=== PATIENT | female | born 1955 | race African-American/Black ===

== ENCOUNTER 2019-02-12 13:19 | Emergency (ER) | payer OTHER ==
[~2019-02-12] VITALS: Ht 162.6 cm; Wt 69.9 kg
[~2019-02-12 13:19] MED LIST: ASPIR 8181 MG ORAL; COZAAR25 MG ORAL; FLEXERIL5 MG ORAL; GABAPENTIN300 MG ORAL; GLIPIZIDE5 MG ORAL; METFORMIN HCL1000 M1 ORAL; NAPROXEN250 MG ORAL; NAPROXEN500 M1 ORAL; NORCO1 EA ORAL; NOVOLIN; NOVOLIN N100 UNIT/1 SUBQ; PRAVASTATIN SOD10 M1 PO
--- NOTE | 2019-02-12 13:23 | NUR ---
ED Nurse Note: Patient not found in waiting room.
[2019-02-12] MEDS ORDERED: MULTIVITAMINS1 EAC2 ORAL (13:31)
[2019-02-12] MEDS ORDERED: SERTRALINE HCL25 MG ORAL (13:31)
[2019-02-12] MEDS ORDERED: Jardiance ORAL (13:31)
[2019-02-12] MEDS ORDERED: METFORMIN HCL1000 M1 ORAL (13:31)
[2019-02-12] MEDS ORDERED: AMLODIPINE BESYL5 MG ORAL (13:31)
[2019-02-12] MEDS ORDERED: CLOPIDOGREL75 MG ORAL (13:32)
--- NOTE | 2019-02-12 13:36 | NUR ---
ED Nurse Note: PT WALKED IN TO ER TODAY FROM HOME. AOX4. PT C/O LEFT SHOULDER PAIN RADIATING TO LEFT NECK AND HEAD WITH ACTIVITY, PAIN 9/10 AFTER FALLING X 1 MONTH AGO. PT DENIES PAIN AT REST. PT DOES C/O SOME NUMBNESS AND TINGLING. FULL ROM OF EXTREMITY AND DIGITS, CIRCULATION AND SENSATION INTACT, CAP REFILL <3 SECONDS AND 5/5 MUSCLE STRENGTH. PT STATES SHE HAS BEEN TAKING TYLENOL 650MG DAILY.
[2019-02-12 13:37] VITALS: BP 136/74
--- NOTE | 2019-02-12 14:05 | NUR ---
ED Nurse Note: PT TO XRAY VIA WHEELCHAIR.
--- NOTE | 2019-02-12 14:36 | NUR ---
ED Nurse Note: PT BACK FROM XRAY VIA WHEELCHAIR.
--- NOTE | 2019-02-12 14:55 | Emergency Room Report ---
History of Present Illness General Chief Complaint: Upper Extremity Injury Source: Medical Record Present Illness HPI 63-year-old female with history of chronic left shoulder pain and rotator cuff tear as well as insulin-dependent diabetes currently under the care of neurologist for neuropathy and disc disease here complaining of worsening left shoulder pain left-sided neck pain after a fall that occurred a month ago. Patient denies loss of consciousness, head injury, dizziness, blurry vision. Has been taking gabapentin as well as ibuprofen for pain. Rating her pain 5 out of 10 upon abduction of the left shoulder. Pain in the pain starts in the left neck and radiates to the left shoulder. Denies any new onset of worsening of her current tingling. Denies numbness. Denies chest pain, shortness of breath, palpitation, abdominal pain, nausea vomiting and all other associated symptoms. Patient had MRI of left shoulder done about 2 months ago which showed a tear of rotator cuff and has been sent to physical therapy however has not been compliant due to long distance to drive. 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 Allergies: Coded Allergies: No Known Allergies (Unverified , 03/10/13) Patient History Past Medical History: see triage record Past Surgical History: unable to obtain Pertinent Family History: none Last Menstrual Period: menopause Now: No Immunizations: UTD Reviewed Nursing Documentation: PMH: Agreed; PSxH: Agreed Nursing Documentation-PMH Past Medical History: No History, Except For Hx Hypertension: Yes Hx Diabetes: Yes Review of Systems All Other Systems: negative except mentioned in HPI Physical Exam Vital Signs Date Time Temp Pulse Resp B/P (MAP) Pulse Ox O2 Delivery O2 Flow Rate FiO2 02/12/19 13:24 98.1 83 15 143/75 (97) 95 Room Air Sp02 EP Interpretation: reviewed, normal General Appearance: normal inspection, well appearing, no apparent distress Head: normocephalic, atraumatic Eyes: bilateral eye normal inspection, bilateral eye PERRL ENT: normal ENT inspection, hearing grossly normal, normal pharynx Neck: supple, no meningismus, no bony tend, no carotid bruits Respiratory: normal inspection, chest non-tender, lungs clear, normal breath sounds, no rhonchi, no retraction, no wheezing Cardiovascular #1: normal inspection, regular rate, rhythm, no edema, no murmur , normal capillary refill Cardiovascular #2: 2+ carotid (R), 2+ carotid (L) Gastrointestinal: normal inspection, soft Rectal: deferred Musculoskeletal: back normal, digits/nails normal, gait/station normal, other - reduced abduction with left shoulder Neurologic: normal inspection, alert, oriented x3, responsive Psychiatric: normal inspection, judgement/insight normal, memory normal Skin: normal inspection, normal color, no rash, warm/dry Lymphatic: normal inspection, no adenopathy Medical Decision Making PA Attestation All diagnoses and treatment plans were reviewed and discussed with my supervising physician Dr. Ruiz Diagnostic Impression: Primary Impression: Chronic shoulder pain Additional Impressions: Neck arthralgia Degenerative arthritis ER Course 63-year-old female with history of chronic left shoulder pain and rotator cuff tear as well as insulin-dependent diabetes currently under the care of neurologist for neuropathy and disc disease here complaining of worsening left shoulder pain left-sided neck pain after a fall that occurred a month ago. Patient denies loss of consciousness, head injury, dizziness, blurry vision. Has been taking gabapentin as well as ibuprofen for pain. Rating her pain 5 out of 10 upon abduction of the left shoulder. Pain in the pain starts in the left neck and radiates to the left shoulder. Denies any new onset of worsening of her current tingling. Denies numbness. Denies chest pain, shortness of breath, palpitation, abdominal pain, nausea vomiting and all other associated symptoms. Patient had MRI of left shoulder done about 2 months ago which showed a tear of rotator cuff and has been sent to physical therapy however has not been compliant due to long distance to drive. 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 Ddx considered but are not limited to : Cervical arthralgia, cervical sprain, strain, fracture, degenerative changes, radiculopathy, shoulder rotator cuff tear, sprain, strain, Vital signs: are WNL, pt. is afebrile H&PE are most consistent with: Cervical arthralgia, degenerative arthritis, chronic shoulder pain ORDERS: Cervical spine x-ray, left shoulder x-ray, naproxen, Voltaren gel ED intervention: arm sling DISCHARGE: At this time pt. is stable for d/c to home. Will provide printed patient care instructions, and any necessary prescriptions. Care plan and follow up instructions have been discussed with the patient prior to discharge. I advised the patient to follow-up with a primary care provider for referral to physical therapy as well as another MRI avoid lifting any objects arm sling was applied Other X-Ray Diagnostic Results Other X-Ray Diagnostic Results #1: X-Ray ordered: Cervical spine # of Views/Limited Vs Complete: 2 View Indication: Pain EP Interpretation: Yes PA Xray: Interpretation reviewed, by supervising MD, and agrees with findings. Interpretation: no dislocation, no soft tissue swelling, no fractures, other - Degenerative changes Impression: No acute disease Electronically Signed by: dallas hedrick PA-C Other X-Ray Diagnostic Results #2: X-Ray ordered: Left shoulder # of Views/Limited Vs Complete: 2 View Indication: Pain EP Interpretation: Yes PA Xray: Interpretation reviewed, by supervising MD, and agrees with findings. Interpretation: no dislocation, no soft tissue swelling, no fractures, other - Degenerative changes Impression: No acute disease Electronically Signed by: dallas hedrick PA-C Last Vital Signs Date Time Temp Pulse Resp B/P (MAP) Pulse Ox O2 Delivery O2 Flow Rate FiO2 02/12/19 13:37 98.2 78 16 136/74 98 Room Air Disposition: HOME, SELF-CARE Condition: Stable Scripts Diclofenac Sodium (VOLTAREN) 100 Gm Gel..gram. 2 GM TP TID, #100 GM Prov: Dallas Connor 02/12/19 Naproxen* (NAPROXEN*) 500 Mg Tablet 500 MG ORAL TWICE A DAY, #20 TAB Prov: Dallas Connor 02/12/19 Referrals: [facility],REFERR[facility] (PCP) Patient Instructions: Cervical Sprain, [id number], Shoulder Pain, Easy-to- Read Additional Instructions: Follow-up with your specialist for another MRI of the left shoulder as your chronic condition may have worsen there is a lot of degenerative changes in your bones which is secondary to osteoarthritis follow-up with the primary care physician for physical therapy referral and further evaluation Dallas Connor Feb 12, 2019 14:55
[2019-02-12] MEDS ORDERED: VOLTAREN100 G1 TP (15:00)
[2019-02-12] MEDS ORDERED: NAPROXEN500 M2 ORAL (15:00)
--- NOTE | 2019-02-12 15:02 | NUR ---
ED Nurse Note: PT SITTING PEACEFULLY IN BED IN NAD. AOX4. PRESCRIPTIONS AND DISCHARGE PAPERWORK EXPLAINED TO PT. PT VERBALIZES UNDERSTANDING AND ALL QUESTIONS ANSWERED. PRESCRIPTIONS AND DISCHARGE PAPERWORK GIVEN TO PT AND ID WRISTBAND REMOVED. PT WALKED OUT OF ER WITH STEADY GAIT AND ALL BELONGINGS.
[2019-02-12 15:03] VITALS: BP 132/76
--- NOTE | 2019-02-12 15:07 | Diagnostic Imaging Report ---
Indication: Neck Pain Findings: 3 views of the cervical spine were obtained. Moderate degenerative changes of the cervical spine are demonstrated. This is characterized by vertebral endplate osteophyte formation and narrowing of intervertebral discs. The bones are osteopenic. Carotid calcifications within the neck are present. There is no acute fracture identified. Alignment is normal. The open-mouth odontoid view shows an intact dens and good alignment of the lateral masses with respect to the body of C2. There is no soft tissue swelling. Impression: Moderate degenerative spondylosis. Atherosclerotic disease
--- NOTE | 2019-02-12 15:08 | Diagnostic Imaging Report ---
Indication: left shoulder pain Findings: 3 views of the left shoulder were obtained. Alignment of the left shoulder is normal. No acute fracture is identified. Calcification noted above the humeral head only within the rotator cuff, which may be a sign of tendinopathy. The bones are osteopenic diffusely. Aorta is calcified. Soft tissues are otherwise unremarkable. Impression: No acute injury
== END 2019-02-12 15:04 | disposition home or self-care (01) ==
LOC: EMR 14:09
DX: M25.512 Pain in left shoulder (principal); G89.29 Other chronic pain; M54.2 Cervicalgia; E11.40 Type 2 diabetes mellitus with diabetic neuropathy, unspecified; I10 Essential (primary) hypertension; M47.9 Spondylosis, unspecified; I70.90 Unspecified atherosclerosis; M85.812 Other specified disorders of bone density and structure, left shoulder
CPT/HCPCS: 72040; 99284